=== PATIENT | female | born 1955 | race Caucasian/White ===

== ENCOUNTER → 2018-09-23 11:52 | Outpatient (CLI) | payer BC, MEDICARE, SELFPAY ==
--- NOTE | 2018-09-23 12:29 | US_ITS ---
FNA w guidance, US Biopsy Thyroid HISTORY: ITS.REASON: RT THYROID NODULE ORDERING PHYSICIAN: Rodrigo Christianson MD PATIENT AGE: 63 years COMPARISON: 09/23/2018, 09/02/2018 TECHNIQUE: Following obtaining informed consent, using aseptic technique and local anesthesia with buffered lidocaine, fine-needle aspiration was performed of the dominant complex right-sided thyroid nodule of interest using sonographic guidance. 3 passes were made into the nodule with a 25-gauge needle. Specimen was given to cytology. The patient tolerated the procedure well without evidence of immediate complications and left the ultrasound suite in stable condition. CYTOLOGY:Negative for malignancy, benign follicular nodule IMPRESSION: Accessible sonographic guided fine needle aspiration of a right thyroid nodule showing benign findings Recommend 6 month sonographic follow-up
--- NOTE | 2018-09-23 12:29 | US_ITS ---
US thyroid HISTORY: ITS.REASON: RT THYROID NODULE ORDERING PHYSICIAN: Rodrigo Christianson MD PATIENT AGE: 63 years Comparison: None FINDINGS: The right lobe is 4.6 x 1.8 x 2 cm. A 7 mm cyst is present along the upper pole. In the mid polar region there is a complex cystic and solid nodule measuring 2.2 x 1.4 cm. In the lower pole there is a 5 mm cyst. The left lobe is 4.3 x 1.4 x 1.9 cm. There is an isoechoic nodule in the mid polar region 1.3 x 0.9 cm. The isthmus is unremarkable IMPRESSION: Enlarged thyroid gland with bilateral thyroid nodules. Dominant nodule on the right having both cystic and solid characteristics was targeted for biopsy.
== END ==
PROVIDERS: PCP Family Medicine; Visit Provider Otolaryngology
DX: E04.1 Nontoxic single thyroid nodule (principal)
CPT/HCPCS: 10005; 76536